=== PATIENT | male | born 2000 | race African-American/Black ===

== ENCOUNTER 2020-05-31 15:11 | Emergency (ER) | payer OTHER ==
[~2020-05-31] VITALS: Ht 170.2 cm; Wt 59.0 kg
[2020-05-31] MEDS ORDERED: AMOX-424 MT (18:34)
[2020-05-31] MEDS ORDERED: TETANUS, DIPHTHERIA, PERTUSSIS VAC/PF 0.5ML (>7YR OLD) IM ONE (18:45)
[2020-05-31 18:53] VITALS: BP 121/55
== END 2020-05-31 18:54 | disposition home or self-care (01) ==
LOC: ER 15:11
DX: S71.131A Puncture wound without foreign body, right thigh, initial encounter (principal); S71.132A Puncture wound without foreign body, left thigh, initial encounter; W54.0XXA Bitten by dog, initial encounter; Y93.89 Activity, other specified; Y92.89 Other specified places as the place of occurrence of the external cause; Y99.8 Other external cause status; Z98.890 Other specified postprocedural states
CPT/HCPCS: 90471; 90715; 99283